=== PATIENT | male | born 1970 | race Two or more races ===

== ENCOUNTER 2022-10-01 21:06 | Emergency (ER) | payer BC ==
[~2022-10-01] VITALS: Ht 177.8 cm; Wt 92.1 kg
== END 2022-10-02 01:14 | disposition home or self-care (01) ==
LOC: ER 21:06
DX: S93.401A Sprain of unspecified ligament of right ankle, initial encounter (principal); X58.XXXA Exposure to other specified factors, initial encounter; Y93.89 Activity, other specified; Y92.89 Other specified places as the place of occurrence of the external cause